=== PATIENT | female | born 1940 | race Caucasian/White ===

== ENCOUNTER 2016-05-27 11:56 | Emergency (ER) | payer OTHER, MEDICARE ==
[~2016-05-27] VITALS: Ht 167.6 cm; Wt 86.2 kg
[~2016-05-27 11:56] MED LIST: CRESTOR5 MG PO; IBUPROFEN 800800 MG PO; IMODIUM ADVANC1 EAC1 PO; NORFLEX100 MG PO; SYNTHROID
[2016-05-27] MEDS ORDERED: LEVOTHYROXIN0.088 MG PO (12:09)
[2016-05-27] MEDS ORDERED: LOVASTATIN 20 M20 MG PO (12:10)
[2016-05-27] MEDS ORDERED: NORVASC2.5 MG PO (12:10)
[2016-05-27] MEDS ORDERED: CLEOCIN HCL150 MG PO (12:50)
[2016-05-27 13:12] VITALS: BP 156/98
== END 2016-05-27 13:13 | disposition home or self-care (01) ==
LOC: ER 11:56
DX: S51.012A Laceration without foreign body of left elbow, initial encounter (principal); W00.0XXA Fall on same level due to ice and snow, initial encounter; Y93.89 Activity, other specified; Y92.89 Other specified places as the place of occurrence of the external cause; Y99.8 Other external cause status; Z88.0 Allergy status to penicillin; Z88.2 Allergy status to sulfonamides; Z88.8 Allergy status to other drugs, medicaments and biological substances

== ENCOUNTER 2017-04-18 19:56 | Inpatient (IN) | payer OTHER, MEDICARE ==
[~2017-04-18] VITALS: Ht 165.1 cm; Wt 88.0 kg
--- NOTE | ~2017-04-18 | HC ---
[facility] [place] [address] CONSULTATION Name: MELANIE CORTES Room #: 441-P [facility] IN M.R.#: [id number] Admission: 04/18/17 Attend Phys: Pola Ding MD Discharge: Date of : 44 Report #: [id number] THIS REPORT FOR: //name// CC: Pola Sidhu DATE OF SERVICE: 04/19/2017 TYPE OF REPORT: General surgery consultation. REASON FOR CONSULTATION: Bowel obstruction. HISTORY OF PRESENT ILLNESS: This is a 76-year-old female patient who was seen in the [facility] with crampy left-sided abdominal pain starting last night. Her last bowel movement was yesterday morning. She reports that her bowel movement was normal in consistency and without bright red blood per rectum. Her crampy pain progressed and she was seen in the [facility] where she underwent a CT of the abdomen and pelvis showing changes consistent with a distal small-bowel obstruction. A nasogastric tube was placed and the patient was admitted. I have been asked to see the patient for further evaluation and treatment. She denies fever or chills and denies any unintentional weight loss. She also denies any previous abdominal surgical history. PAST MEDICAL HISTORY: Significant for hypertension, hypercholesterolemia, diverticulosis and hypothyroidism. PAST SURGICAL HISTORY: None. MEDICATIONS: Synthroid, Norvasc, Zestril, Crestor and 81 mg aspirin. Please see the electronic medical record for dosing details. ALLERGIES: HYDROCHLOROTHIAZIDE, PENICILLIN and SULFA DRUGS. FAMILY HISTORY: Significant for breast cancer in her mother. Her of pancreatic cancer. SOCIAL HISTORY: The patient denies use of tobacco or illicit drugs. She drinks alcohol socially. She is a retired [employer]. She practices as a Hindu. REVIEW OF SYSTEMS: As per history of present illness and in addition: GENERAL: The patient denies unintentional weight loss. Denies fever or chills. HEENT: Denies changes in taste, vision, hearing or smell. RESPIRATORY: Denies shortness of breath, COPD or asthma. CARDIOVASCULAR: Denies chest pain or palpitations. [facility] [address] [place] [address] CONSULTATION Name: MELANIE CORTES Room #: 441-P [facility] IN [facility].#: [id number] Admission: 04/18/17 Attend Phys: Pola Ding MD Discharge: Date of : 44 Report #: [id number] GASTROINTESTINAL: As per history of present illness. Denies bright red blood per rectum. Her last colonoscopy was in 2007. She had been undergoing colonoscopies for polyps and was cleared for colonoscopies every 10 years. GENITOURINARY: Denies dysuria, urgency, increased urinary frequency or hematuria. MUSCULOSKELETAL: Denies myalgia, arthralgia or arthritis. NEUROLOGICAL: Denies headaches, numbness or tingling. PSYCHIATRIC: Denies depression, anxiety or suicidal ideations. SKIN AND INTEGUMENTARY: Denies new skin lesions, rashes or moles. ENDOCRINE: Denies polydipsia, polyuria or heat or cold intolerance. HEMATOLOGIC: Denies easy bleeding, bruising or anemia. All other review of systems is negative. PHYSICAL EXAMINATION: VITAL SIGNS: Temperature 98.3, blood pressure 128/74, pulse 75 and respirations 20. GENERAL: This is a well-developed, well-nourished 76-year-old female patient, in no acute distress. HEENT: Atraumatic and normocephalic with moist mucosal membranes. Oropharynx is clear. She has no scleral icterus. The nasogastric tube is in place. NECK: Supple. No appreciable lymphadenopathy. Trachea is midline. CHEST: Clear bilaterally. No crackles or wheezes. CARDIOVASCULAR: Regular rate and rhythm. S1 and S2. ABDOMEN: Soft and nondistended with mild tenderness to palpation in the left lower quadrant. She has no rebound or guarding. No palpable masses. No appreciable hernias. GENITOURINARY: Normal external female genitalia. EXTREMITIES: No clubbing, cyanosis or edema. NEUROLOGICAL: Cranial nerves 2 through 12 grossly intact. PSYCHIATRIC: Normal mood and affect. SKIN AND INTEGUMENTARY: No acute inflammatory changes, rashes or lesions are present. LABORATORY DATA: CBC shows a white blood cell count of 12.8, hemoglobin of 12.6, hematocrit 38.8 and platelets 154. Electrolytes show sodium 143, potassium 4.6, chloride 109, CO2 24, BUN 14, creatinine 0.7 and glucose 137. White blood cell count at the time of admission was 9.9. Lactate last night was 0.8. A TSH was normal at 0.788. INR normal at 1.0. Urinalysis yesterday showed trace leukocytes. RADIOLOGIC STUDIES: CT of the abdomen and pelvis showed fluid filled distention of her proximal and mid small bowel with a transition to normal caliber small bowel and the distal small bowel consistent with at least a partial small-bowel obstruction. There was no evidence for pneumoperitoneum, inflammation or ascites. [facility] [address] [place] [address] CONSULTATION Name: MELANIE CORTES Room #: 441-P [facility] IN .R.#: [id number] Admission: 04/18/17 Attend Phys: Pola Ding MD Discharge: Date of : 42 Report #: [id number] IMPRESSION AND PLAN: This is a 76-year-old female patient with a history of hypertension, hypercholesterolemia, diverticulosis and hypothyroidism; who has evidence who has abdominal pain and CT evidence for small-bowel obstruction. We discussed the pathophysiology and natural history of bowel obstructions as well as treatment alternatives and surgical options. The patient would benefit from conservative treatment, at least initially. Should she fail to clear her bowel obstruction with conservative measures, she may ultimately require operative intervention. We would continue nasogastric decompression, IV fluids and n.p.o. status and I will follow along with serial abdominal exams as well as labs and x-rays as necessary. I sincerely appreciate the opportunity to participate in the care of this patient and we will leave further recommendations and orders in the electronic medical record as appropriate. <ELECTRONICALLY SIGNED> By: Nitin Roth MD, FACS 04/20/17 [id number] Nitin Roth MD, FACS /nt
--- NOTE | ~2017-04-18 | O ---
[facility] [employer] [place] [address] OPERATIVE REPORT Name: MELANIE CORTES Room #: 441-P ADM IN M.R.#: [id number] Admission: 04/18/17 Attend Phys: Pola Ding MD Discharge: Date of : 44 Report #: [id number] THIS REPORT FOR: //name// CC: Dr. Amanda POWELL DATE OF SERVICE: 04/23/2017 SURGEON: Nitin Roth MD FILLER OPERATOR: Betty Santamaria NP PREOPERATIVE DIAGNOSES: 1. Small-bowel obstruction. 2. Hypertension. 3. Hypercholesterolemia. 4. Hypothyroidism. POSTOPERATIVE DIAGNOSES 1. Small-bowel obstruction secondary to single adhesive band. 2. Jejunal diverticulosis. 3. Hypertension. 4. Hypercholesterolemia. 5. Hypothyroidism. PROCEDURES: 1. Diagnostic laparoscopy. 2. Laparoscopic lysis of single adhesive band with release of small-bowel obstruction. ANESTHESIA: General endotracheal anesthesia and local anesthetic. ESTIMATED BLOOD LOSS: 2 mL. SPECIMEN: None. COMPLICATIONS: None appreciated. INDICATIONS FOR PROCEDURE: This is a 76-year-old female patient who was admitted with abdominal pain. She underwent a CT of the abdomen and pelvis showing evidence for a small-bowel obstruction. She has never undergone an abdominal operation in the past. She was treated conservatively and followed with serial abdominal exams and x-rays showing persistent dilatation and slight worsening on yesterday's imaging, although she had passed several small-bowel movements. The patient presents now for diagnostic laparoscopy with release of [facility] [address] [place] [address] OPERATIVE REPORT Name: MELANIE CORTES Room #: 441-P ADM IN M.R.#: [id number] Admission: 04/18/17 Attend Phys: Pola Ding MD Discharge: Date of : 42 Report #: [id number] her small-bowel obstruction, possible small-bowel resection. OPERATIVE FINDINGS: Upon entrance into the abdominal cavity, the patient was seen to have a substantial amount of ascites fluid. Ultimately, 1300 mL of ascites fluid was suctioned from the abdominal cavity. The ascites was secondary to her small-bowel obstructive process. A single adhesive band was present from the small-bowel mesentery to the retroperitoneum, which caused the obstruction. The bowel proximal to this showed a punctate hemorrhage. There was no evidence for perforation of the small-bowel. There was significant dilatation of the bowel necessitating placement of an additional port for retraction. After dividing the adhesive band, there was no evidence for stricture of the small bowel. Jejunal diverticula were present with no acute inflammatory changes. These were felt to be nonpathologic. Her liver, gallbladder, and colon all appeared normal, otherwise. There was no other significant intra-abdominal pathology was seen. There was no evidence for iatrogenic injury at the conclusion of the operation and the sponge, needle, and instrument counts were correct. The patient remained stable throughout and to the recovery room. DESCRIPTION OF PROCEDURE IN DETAIL: After the risks, benefits, and expectations of the operation were discussed in detail with the patient, informed consent was obtained. The patient was identified in the preoperative holding area. She was given IV antibiotics as documented in the chart in line with SCIP metrics. The patient was then taken to the operating room and she was placed in the supine position. SCDs were placed on the patient's bilateral lower extremities and pneumatic compression was initiated. The patient was then given IV sedation, she was intubated without incident. Her abdomen was then prepped and draped in the standard sterile fashion. A time-out was performed to identify the correct patient and procedure. Local anesthetic was infiltrated into the skin and subcutaneous tissue in the right subcostal area where a small transverse incision was made. A 5-mm Visiport was placed intraperitoneally. Pneumoperitoneum was achieved with insufflation of carbon dioxide. Ascites fluid was immediately seen. A 30-degree angled laparoscope was inserted. Additional 5-mm ports were placed in the right lateral and right lower quadrant of the abdomen under direct visualization after local anesthetic was infiltrated into the skin and subcutaneous tissue and appropriately sized incisions were made. Operative findings are as noted above. The ascites fluid was suctioned from the abdominal cavity. The small-bowel was run from the proximally dilated bowel distally to an area where there was an abrupt change in caliber of the small-bowel, whereby a normal appearing bowel appeared to be distal to dilated proximal bowel with punctate hemorrhage. The small-bowel was run from the back to the ileocecal valve and no other obstructive processes were seen. Jejunal diverticula were present. There was [address] [address] OPERATIVE REPORT Name: CORTESMELANIE Room #: 441-P [facility] IN M.R.#: [id number] Admission: 04/18/17 Attend Phys: Pola Ding MD Discharge: Date of : 42 Report #: [id number] no evidence for a Meckel's diverticulum. The fluid was suctioned from the abdominal cavity and the adhesive band was not able to be visualized due to the small-bowel dilatation. I was unable to see this area despite extreme positioning. Decision was made to place a 5-mm port in the left upper quadrant of the abdomen using a similar technique. After doing so, the dilated proximal small-bowel was retracted in a cephalad direction and I was able to isolate the single adhesive band. This was divided sharply and there was good hemostasis. The small-bowel was examined for ischemia or stricture, neither of which were present. The gas within the distended bowel appeared to move distally after dividing the adhesive band. The abdominal cavity was then surveyed for other pathology. Findings are as noted above. As much fluid was suctioned from the abdominal cavity as possible. The ports were then removed. Interrupted subcuticular 4-0 Monocryl sutures and Dermabond were used to close the skin incisions. The patient tolerated the procedure well. She was awakened, extubated, and taken to recovery room in stable condition with no apparent intraoperative complications. <ELECTRONICALLY SIGNED> By: Nitin Roth MD, FACS 04/23/17 1210 [id number] Nitin Roth MD, FACS /nt
[2017-04-18 19:56] VITALS: BP 152/81
[~2017-04-18 19:56] MED LIST changes: +CIPRO500 MG PO; +CLEOCIN HCL150 MG PO; +CRESTOR10 MG PO; +LEVOTHYROXIN0.088 MG PO; +LISINOPRIL10 MG PO; +LOVASTATIN 20 M20 MG PO; +NORVASC2.5 MG PO
[2017-04-18] MEDS ORDERED: ASPIRIN81 M2 PO (20:23)
[2017-04-18] MEDS ORDERED: LISINOPRIL10 MG PO (20:23)
[2017-04-18 20:51] LABS: URINE BILIRUBIN NEGATIVE (Negative); URINE BLOOD NEGATIVE (Negative); URINE COLOR YELLOW; URINE GLUCOSE-RANDOM* NEGATIVE (Negative); URINE KETONES NEGATIVE (Negative); URINE NITRITE NEGATIVE (Negative); URINE PROTEIN (DIPSTICK) NEGATIVE (Negative); URINE UROBILINOGEN 0.2 E.U./dl (0.2-1.0)
[2017-04-18 21:42] LABS: ABSOLUTE NEUTROPHILS 7.9 thou/uL (1.4-8.2); BASOPHILS 0.7 % (0.0-2.0); EOSINOPHILS 2.8 % (0.0-3.0); HEMATOCRIT 41.4 % (37.0-47.0); HEMOGLOBIN 13.5 gm/dL (12.0-15.0); LYMPHOCYTES 10.5 % (24.0-44.0); MCH 32.2 pg (26.0-34.0); MCHC 32.6 g/dL (28.0-37.0); MCV 98.6 fL (80.0-100.0); MONOCYTES 6.5 % (1.0-8.0); PLATELET COUNT 158 thou/uL (150-400); POLYS 79.5 % (36.0-66.0); RDW 13.3 % (10.5-14.5); WBC 9.9 thou/uL (4.0-11.0)
[2017-04-18 21:43] LABS: MANUAL DIFF NO
[2017-04-18 21:48] LABS: CALCIUM 9.4 mg/dL (8.5-10.1); CREATININE 0.8 mg/dL (0.6-1.0); POTASSIUM 4.4 mmol/L (3.5-5.1)
[2017-04-18 21:54] LABS: TOTAL BILIRUBIN 0.4 mg/dL (<0.1-1.0); TOTAL PROTEIN 7.3 g/dL (6.4-8.2)
[2017-04-18 23:35] VITALS: BP 142/77
[2017-04-19 03:59] VITALS: BP 138/73
[2017-04-19 06:18] LABS: HEMATOCRIT 38.8 % (37.0-47.0); HEMOGLOBIN 12.6 gm/dL (12.0-15.0); MCH 31.8 pg (26.0-34.0); MCHC 32.5 g/dL (28.0-37.0); MCV 97.9 fL (80.0-100.0); RBC 3.96 mil/uL (4.20-5.00); WBC 12.8 thou/uL (4.0-11.0)
[2017-04-19 06:28] LABS: CALCIUM 8.7 mg/dL (8.5-10.1); CREATININE 0.7 mg/dL (0.6-1.0); POTASSIUM 4.6 mmol/L (3.5-5.1)
[2017-04-19 06:32] LABS: PROTIME 10.3 Seconds (9.3-11.4)
[2017-04-19 08:00] VITALS: BP 128/68
[2017-04-19 15:46] VITALS: BP 128/74
[2017-04-19 19:13] VITALS: BP 134/67
[2017-04-20 03:30] LABS: HEMATOCRIT 40.1 % (37.0-47.0); HEMOGLOBIN 13.3 gm/dL (12.0-15.0); MCH 32.6 pg (26.0-34.0); MCHC 33.3 g/dL (28.0-37.0); PLATELET COUNT 156 thou/uL (150-400); RBC 4.09 mil/uL (4.20-5.00); RDW 13.3 % (10.5-14.5); WBC 14.9 thou/uL (4.0-11.0)
[2017-04-20 03:32] LABS: CALCIUM 8.5 mg/dL (8.5-10.1); CREATININE 0.6 mg/dL (0.6-1.0); MANUAL DIFF YES; POTASSIUM 4.5 mmol/L (3.5-5.1)
[2017-04-20 04:45] VITALS: BP 138/77
[2017-04-20 05:30] LABS: LARGE PLATELETS FEW; TOTAL CELL COUNT 100
[2017-04-20 08:07] VITALS: BP 139/81
[2017-04-20 17:20] VITALS: BP 124/73
[2017-04-20 19:00] VITALS: BP 140/71
[2017-04-21 05:47] VITALS: BP 140/75
[2017-04-21 08:00] VITALS: BP 122/75
[2017-04-21 17:01] VITALS: BP 117/74
[2017-04-21 19:20] VITALS: BP 124/82
[2017-04-22 04:15] LABS: HEMATOCRIT 38.4 % (37.0-47.0); HEMOGLOBIN 12.8 gm/dL (12.0-15.0); MCH 32.6 pg (26.0-34.0); MCHC 33.2 g/dL (28.0-37.0); PLATELET COUNT 164 thou/uL (150-400); RBC 3.92 mil/uL (4.20-5.00); WBC 5.4 thou/uL (4.0-11.0)
[2017-04-22 04:20] LABS: MANUAL DIFF YES
[2017-04-22 04:26] LABS: CREATININE 0.6 mg/dL (0.6-1.0); POTASSIUM 4.3 mmol/L (3.5-5.1)
[2017-04-22 04:30] VITALS: BP 116/72
[2017-04-22 05:55] LABS: ABSOLUTE NEUTROPHILS 3.6 thou/uL (1.4-8.2); ATYPICAL LYMPHS 2 %; LARGE PLATELETS OCCASIONAL; TOTAL CELL COUNT 100
[2017-04-22 09:17] VITALS: BP 121/87
[2017-04-22 16:26] VITALS: BP 125/72
[2017-04-22 20:28] VITALS: BP 123/74
[2017-04-23] VITALS (11 sets, daily range): BP systolic 108–147; BP diastolic 64–91
[2017-04-23 03:59] LABS: CALCIUM 8.2 mg/dL (8.5-10.1); CREATININE 0.6 mg/dL (0.6-1.0); POTASSIUM 4.2 mmol/L (3.5-5.1)
[2017-04-23 04:21] LABS: HEMATOCRIT 37.7 % (37.0-47.0); HEMOGLOBIN 12.7 gm/dL (12.0-15.0); MCH 33.2 pg (26.0-34.0); MCHC 33.8 g/dL (28.0-37.0); MCV 98.3 fL (80.0-100.0); PLATELET COUNT 169 thou/uL (150-400); RBC 3.84 mil/uL (4.20-5.00); RDW 12.8 % (10.5-14.5); WBC 6.9 thou/uL (4.0-11.0)
[2017-04-23 04:27] LABS: MANUAL DIFF YES
[2017-04-23 06:36] LABS: ABSOLUTE NEUTROPHILS 5.2 thou/uL (1.4-8.2); ATYPICAL LYMPHS 2 %; TOTAL CELL COUNT 100
[2017-04-24 03:45] VITALS: BP 116/70
[2017-04-24 08:23] VITALS: BP 137/73
[2017-04-24 16:27] VITALS: BP 143/80
[2017-04-24 19:34] VITALS: BP 133/74
[2017-04-25 06:47] LABS: HEMATOCRIT 34.5 % (37.0-47.0); HEMOGLOBIN 11.8 gm/dL (12.0-15.0); MCH 33.2 pg (26.0-34.0); MCHC 34.2 g/dL (28.0-37.0); MCV 97.3 fL (80.0-100.0); PLATELET COUNT 166 thou/uL (150-400); RBC 3.55 mil/uL (4.20-5.00); RDW 12.7 % (10.5-14.5); WBC 4.8 thou/uL (4.0-11.0)
[2017-04-25 06:49] LABS: CALCIUM 8.2 mg/dL (8.5-10.1); CREATININE 0.6 mg/dL (0.6-1.0); MANUAL DIFF YES
[2017-04-25 08:19] VITALS: BP 143/72
[2017-04-25 08:48] LABS: TOTAL CELL COUNT 100
[2017-04-25 08:49] LABS: PLATELET ESTIMATE NORMAL
[2017-04-25 12:30] VITALS: BP 143/72
== END 2017-04-25 15:15 | disposition home or self-care (01) | DRG 337 ==
LOC: ER 19:56 → EROBS 23:01 → 4S 23:01 → ENTRNSPT 04-25 14:51 → EDTRNSPTSTS 04-25 14:53 → 4S 04-25 15:15
PROVIDERS: Family Medicine; Internal Medicine Endocrinology, Diabetes & Metabolism; Nurse Practitioner Family; Physician Assistant
PROC: 0DN84ZZ Release Small Intestine, Percutaneous Endoscopic Approach (ICD-10-PCS; principal; 2017-04-23)
DX: K56.51 Intestinal adhesions [bands], with partial obstruction (principal); I10 Essential (primary) hypertension; K57.10 Diverticulosis of small intestine without perforation or abscess without bleeding; E03.9 Hypothyroidism, unspecified; E78.00 Pure hypercholesterolemia, unspecified; Z79.82 Long term (current) use of aspirin; Z79.899 Other long term (current) drug therapy; Z88.0 Allergy status to penicillin; Z88.2 Allergy status to sulfonamides; Z88.8 Allergy status to other drugs, medicaments and biological substances; Z80.3 Family history of malignant neoplasm of breast; Z80.0 Family history of malignant neoplasm of digestive organs
CPT/HCPCS: 10195; 50010; 50101; 50249; 50386; 50455; 50555; 51489; 52265; 53307; 54118; 56462; 56526; 57092; 62110; 62900; 70005